=== PATIENT | female | born 1945 | race Caucasian/White ===

== ENCOUNTER 2021-01-01 09:21 | Emergency (ER) | payer MEDICARE, OTHER, SELFPAY ==
[2021-01-01] VITALS (43 sets, daily range): BP systolic 102–158; BP diastolic 52–76; PULSE 53–64; RESP 12–29; O2SAT 96–100
--- NOTE | 2021-01-01 09:34 | DI.RAD.S_ITS ---
PROCEDURE: XR CHEST 1V INDICATIONS: fall TECHNIQUE: One view of the chest was acquired. COMPARISON: None. FINDINGS: Surgical changes and devices: None. Lungs and pleura: Lungs are clear. No pleural effusions or pneumothorax. Mediastinum: Mediastinal contours appear normal. Heart size is normal. Bones and chest wall: No displaced rib fracture is identified. No suspicious bony lesions. Overlying soft tissues appear unremarkable. Degenerative changes are seen in the included lumbar spine. IMPRESSION: No acute cardiopulmonary abnormality. Dictated by: Alvin Olivo M.D. on 01/01/2021 at 10:04 Approved by: Alvin Olivo M.D. on 01/01/2021 at 10:05
--- NOTE | 2021-01-01 09:34 | DI.CT.S_ITS ---
PROCEDURE: CT CERVICAL SPINE WO CON INDICATIONS: fall, right hip pain TECHNIQUE: Noncontrast 3 mm thick sections acquired from the skull base to the T4 level. Sagittal and coronal reformats were then constructed. For radiation dose reduction, the following was used: automated exposure control, adjustment of mA and/or kV according to patient size. COMPARISON: [facility], CR, XR CHEST 1V, 01/01/2021, 9:48. [facility], CR, XR HIP W PEL IF DONE RT 2V, 01/01/2021, 9:48. [facility], CT, CT HEAD/BRAIN WO CON, 01/01/2021, 9:40. FINDINGS: Image quality: Excellent. Bones: No fractures or dislocations. Visualized superior ribs are intact. There is moderate to severe disc space narrowing at C3-C4, with severe disc space narrowing at C4-C5, C5-C6, and C6-C7. There is mild anterolisthesis at C3-C4, with minimal retrolisthesis at C4-C5 and C5-C6. Minimal anterolisthesis is seen at C6-C7. Focal degenerative change is also seen at T2-T3 and at T4-T5. At C4-C5, C5-C6, and C6-C7, there is moderate to severe right-sided and at least moderate left-sided neural foraminal narrowing seen. At C4-C5 and C5-C6, there is at least moderate central canal narrowing seen. Soft tissues: Prevertebral soft tissues are normal in thickness. No paravertebral hematomas. No apical pneumothoraces. IMPRESSION: No acute fractures are seen. Prominent cervical spine degenerative changes are seen. Dictated by: Livan Randolph M.D. on 01/01/2021 at 9:05 Approved by: Livan Randolph M.D. on 01/01/2021 at 9:08
--- NOTE | 2021-01-01 09:34 | DI.RAD.S_ITS ---
PROCEDURE: XR HIP W PEL IF DONE RT 2V INDICATIONS: right hip pain, fall TECHNIQUE: AP view of the pelvis and cross-table lateral view of the right hip. COMPARISON: None. FINDINGS: Bones: There is a comminuted displaced intertrochanteric fracture of the right proximal femur. The lesser trochanter component is displaced approximately 1.3 cm medially. There is also over riding of fracture fragments and mild varus angulation. Soft tissues: Overlying postoperative changes are noted. No suspicious soft tissue densities. IMPRESSION: Comminuted moderately displaced intertrochanteric fracture of the right proximal femur. Dictated by: Alvin Olivo M.D. on 01/01/2021 at 10:05 Approved by: Alvin Olivo M.D. on 01/01/2021 at 10:07
--- NOTE | 2021-01-01 09:34 | DI.CT.S_ITS ---
PROCEDURE: CT HEAD/BRAIN WO CON INDICATIONS: fall, right hip pain TECHNIQUE: Noncontrast 4.5 mm thick angled axial sections acquired from the foramen magnum to the vertex, with coronal and sagittal reformats. For radiation dose reduction, the following was used: automated exposure control, adjustment of mA and/or kV according to patient size. COMPARISON: None. FINDINGS: Cerebrum, Cerebellum and Brainstem: Moderate cerebral and cerebellar volume loss as well as minimal multifocal hypoattenuation in the deep and subcortical white matter present. No acute hemorrhage or mass effect. 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 Basal cisterns and foramen magnum are clear. Ventricles: Appropriate in size and position given the amount of cerebral atrophy. No evidence of hydrocephalus. Skull Base: The bony sella, pituitary gland and infundibulum are unremarkable. Clivus and craniovertebral relationships are appropriate. Visualized portions of external auditory canals and tympanic cavities are within normal limits. Calvarium and Scalp: No scalp soft tissue swelling. The underlying calvarium is intact without skull fracture or lytic lesion. Paranasal Sinuses: There is near complete opacification left frontal sinus related to mucosal thickening and debris. Mastoids: Unremarkable as visualized. No mastoid effusion present. Other: Atherosclerotic calcification in the cavernous portions of the distal internal carotid arteries are noted. IMPRESSION: 1. Atrophy, old cerebellar infarct, and chronic ischemic change without intracranial hemorrhage or mass effect. 2. Left maxillary mucosal sinus disease Approved by: Igor Deleon M.D. on 01/01/2021 at 9:10
--- NOTE | 2021-01-01 09:36 | ED.LOWEXIN ---
HPI - Extremity Injury (Lower) General Chief Complaint: Extremity Injury, Lower Stated Complaint: GLF,Right hip pain,short/rotation Time Seen by Provider: 01/01/21 09:33 Source: patient and EMS Mode of arrival: EMS Limitations: physical limitation History of Present Illness HPI Narrative: This is a 75-year-old female who comes emergency department with complaint of ground level fall. Patient states they are currently dog sitting 2 dogs for friends. 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 She denies hitting her head, she denies any neck or back pain. She denies any chest pain, no shortness of breath. No nausea or vomiting. She denies any loss of recent bowel or bladder incontinence. Patient denies any numbness or tingling in her lower extremities she is able to flex and point her right foot without issue. She has pain in the right hip region. She denies pain in her pelvis. Patient is not anticoagulated. She is immune suppressed and on Humira for rheumatoid arthritis. She does not have any history of hypertension, dyslipidemia or diabetes. 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 Patient is on medications for her memory including donepezil. She lives with her . She was transported from [facility] by EMS. Related Data Allergies Allergy/AdvReac Type Severity Reaction Status Date / Time hydroxychloroquine Allergy Verified 01/01/21 09:53 [From Plaquenil] Review of Systems Review of Systems ROS Unobtainable: All systems reviewed & are unremarkable except as noted in HPI and below Patient History Social History Smoking Status: Never smoker Smoking Status: Never smoker Substance Use Type: does not use Exam Narrative Exam Narrative: GEN: Patient appears in mild distress. HEAD: No evidence of trauma, no raccoon/Napier sign. NECK: Nontender, painless range of motion, trachea midline Negative Nexus criteria, there is no midline line tenderness, positive for distracting injury, no altered mental status, neuro deficit, recent EtOH. EYES: PE, pinpoint bilaterally, EOMI ENT: External inspection normal, trachea is midline, TM's are normal no hemotypanum, Nares are clear, no septal hematoma, no dental or oral injury, airway is normal and with normal occlusion, No bony tenderness RESP: Chest is nontender and has symmetric movement, no ecchymosis, breath sounds are normal no crackles, wheezes or rales CVS: Heart sounds are normal, no murmur noted, No JVD. ABG/GI: Nontender, soft, normal bowel sounds, no distention, no organomegaly, pelvic rock is negative NEURO: Oriented AOx3, neuro is grossly intact, sensation and motor is normal all 4 extremities moving, cranial nerves II through XII are intact, GCS is 15, patient has occasional trouble with remote history questions. PSYCH: Normal mood and affect SKIN: Intact, warm and dry, no crepitus and without decubitus BACK: No CVA tenderness, no vertebral tenderness, no step-off's, no crepitus EXT: Atraumatic, left hip is nontender, right hip is tender. Patient has a right lower extremity is shortened and externally rotated, no pedal edema, normal color and temperature, normal range of motion of extremities with normal tendon exam, 2+ pulses in all four extremities. Patient has sensation equal in bilateral lower extremities. 2+ pulses bilaterally. Patient has normal dorsiflexion plantar flexion of her right foot. Initial Vital Signs Initial Vital Signs: Vital Signs Pulse Rate 60 01/01/21 09:32 Respiratory Rate 22 01/01/21 09:32 Blood Pressure 158/72 H 01/01/21 09:32 Pulse Oximetry 98 01/01/21 09:32 Scores GCS [place] coma scale eye opening: Spontaneous [place] coma scale verbal response: Orientated [place] coma scale motor response: Obey commands [place] coma scale total score: 15 Course Orders Ordered: Discontinued Medications Sodium Chloride (Normal Saline 0.9%) 1,000 mls @ 150 mls/hr IV CONT SAMANTHA Last Infusion: 01/01/21 16:45 Dose: 0 mls/hr Documented by: JOSÉ MIGUELONETrae Admin: 01/01/21 10:02 Dose: 150 mls/hr Documented by: PATY Amiodarone HCl/Dextrose (Nexterone) 150 mg in 100 mls @ 600 mls/hr IV NOW ONE; Protocol Stop: 01/01/21 09:45 Last Infusion: 01/01/21 10:45 Dose: 0 mls/hr Documented by: BTONETrae Admin: 01/01/21 10:03 Dose: 600 mls/hr Documented by: PATY Amiodarone HCl/Dextrose (Nexterone) 360 mg in 200 mls @ 33.333 mls/hr IV NOW ONE; Protocol Stop: 01/01/21 16:05 Last Titration: 01/01/21 20:20 Dose: 0 mls/hr, 0 mls/hr Documented by: Admin: 01/01/21 11:13 Dose: 33.333 mls/hr, 33.33 mls/hr Documented by: PATY Magnesium Sulfate (Magnesium Sulfate) 2 gm in 50 mls @ 150 mls/hr IV NOW ONE Stop: 01/01/21 13:03 Last Infusion: 01/01/21 14:08 Dose: 0 mls/hr Documented by: PATY Cosigned by: MICHELLE Admin: 01/01/21 12:50 Dose: 150 mls/hr Documented by: PATY Cosigned by: MICHELLE Amiodarone HCl/Dextrose (Nexterone) 360 mg in 200 mls @ 16.7 mls/hr IV CONT SAMANTHA; Protocol Stop: 01/02/21 04:14 Last Titration: 01/01/21 20:23 Dose: 0 mls/hr, 0 mls/hr Documented by: Admin: 01/01/21 16:36 Dose: 16.7 mls/hr, 16.7 mls/hr Documented by: PATY Magnesium Sulfate (Magnesium Sulfate) 2 gm in 50 mls @ 150 mls/hr IV NOW ONE Stop: 01/01/21 17:45 Last Infusion: 01/01/21 18:44 Dose: 0 mls/hr Documented by: PATY Cosigned by: MICHELLE Admin: 01/01/21 17:36 Dose: 150 mls/hr Documented by: PATY Cosigned by: MICHELLE Morphine Sulfate (Morphine 4 Mg/Ml Inj) 4 mg IV NOW ONE Stop: 01/01/21 11:07 Last Admin: 01/01/21 11:13 Dose: 4 mg Documented by: PATY Morphine Sulfate (Morphine 4 Mg/Ml Inj) 4 mg IV NOW ONE Stop: 01/01/21 15:32 Last Admin: 01/01/21 16:35 Dose: 4 mg Documented by: BTONER Ondansetron HCl (Ondansetron 4 Mg/2 Ml Inj) 4 mg IV NOW ONE Stop: 01/01/21 11:24 Last Admin: 01/01/21 11:27 Dose: 4 mg Documented by: BTONER Consultations Consultation #1: Dr. Valles, cardiology with [facility]. Would recommend getting ECHO and starting amiodarone gtt. Patient would be appropriate for transfer to outside facility Consultation #2: Dr. Shepard with cardiology at [place], recommends to continue amiodarone gtt at this time. No additional changes currently Consultation #3: Dr. Zafar, hospitalist at [place] who accepts for transfer. Ortho has been consulted. Case discussed with cardiology. Discuss has had multiple runs of what appeared to be V-tach although patient has had some lightheadedness she has not had any other symptoms. She has not required any cardioversion. Lactate was 2.3 but had improved. Electrolytes are appropriate, renal functions appropriate. Troponin is negative x2 over [address], C-spine, chest x-ray and hip fracture on x-ray are noted. Patient is covid negative on PCR. Vital Signs Vital signs: Vital Signs - 8 hr 01/01/21 11:30 01/01/21 11:45 01/01/21 12:00 Pulse Rate 55 L 58 L 58 L Respiratory Rate 19 18 24 Blood Pressure 113/54 L 105/55 L 115/60 Pulse Oximetry 98 99 98 01/01/21 12:15 01/01/21 12:30 01/01/21 12:45 Pulse Rate 56 L 62 62 Respiratory Rate 22 24 Blood Pressure 111/76 115/71 102/52 L Pulse Oximetry 98 98 98 01/01/21 13:00 01/01/21 13:15 01/01/21 13:30 Pulse Rate 63 57 L 57 L Respiratory Rate 18 20 18 Blood Pressure 112/57 L 128/57 L 110/56 L Pulse Oximetry 99 97 98 01/01/21 13:45 01/01/21 14:00 01/01/21 14:15 Pulse Rate 62 61 58 L Respiratory Rate Blood Pressure 127/59 L 111/57 L 120/57 L Pulse Oximetry 99 99 97 01/01/21 14:30 01/01/21 14:45 01/01/21 15:00 Pulse Rate 63 56 L 57 L Respiratory Rate Blood Pressure 130/56 L 120/58 L 133/61 Pulse Oximetry 97 98 100 01/01/21 15:15 01/01/21 15:30 01/01/21 15:45 Pulse Rate 54 L 54 L 53 L Respiratory Rate Blood Pressure 110/58 L 113/54 L 117/59 L Pulse Oximetry 99 100 98 MDM - Extremity Injury (Lower) Lab Data Result diagrams: 01/01/21 14:30 01/01/21 10:44 Labs: Lab Results 01/01/21 01/01/21 01/01/21 Range/Units 10:17 10:17 10:29 WBC (4.5-11.0) X10^3/uL RBC (4.0-5.2) X10^6/uL Hgb (12.0-16.0) g/dL Hct (36-46) % MCV (80-100) fL MCH (26-34) PG MCHC (30-36) % RDW (11.6-14.8) % Plt Count (150-400) X10^3/uL Neut % (Auto) (50-75) % Lymph % (Auto) (25-40) % [place] % (Auto) (3-14) % Eos % (Auto) (2-4) % Baso % (Auto) (0-2) % Neut # (Auto) (9556-2329) /uL Lymph # (Auto) (2216-8293) /uL [place] # (Auto) (0-900) /uL Eos # (Auto) (0-450) /uL Baso # (Auto) (0-100) /uL PT (10.1-12.7) SECONDS INR (0.9-1.3) APTT (26.4-36.2) SECONDS Sodium (137-145) mmol/L Potassium (3.4-5.1) mmol/L Chloride (98-107) mmol/L Carbon Dioxide (22-32) mmol/L BUN (7-17) mg/dL Creatinine (0.52-1.04) mg/dL Estimated GFR (>60) mL/min BUN/Creatinine Ratio (6-22) Glucose (80-110) mg/dL Lactate (0.7-2.1) mmol/L Calcium (8.4-10.2) mg/dL Magnesium (1.6-2.3) mg/dL Total Creatine Kinase (30-135) U/L CK-MB (CK-2) (<2.37) ng/mL CK-MB (CK-2) Rel Index (1.5-5.0) % Troponin I (0.01-0.034) ng/mL NT-Pro-B Natriuret Pep (<450) pg/mL Urine Color Urine Appearance Urine pH (4.5-8.0) Ur Specific [place] (1.000-1.035) Urine Protein (Negative) Urine Glucose (UA) (Negative) g/dL Urine Ketones (NEGATIVE) Urine Occult Blood (Negative) Urine Nitrate (Negative) Urine Bilirubin (NEGATIVE) Urine Urobilinogen (0.2) E.U./dL Ur Leukocyte Esterase (NEGATIVE) Urine RBC (0-5/HPF) Urine WBC (0-5/HPF) Ur Squamous Epith Cells (0-5/HPF) Urine Bacteria (None) Ur Culture Indicated? U Opiates 300ng/mL cut Negative (Negative) Ur Oxycodone Screen Negative (Negative) Urine Methadone Screen Negative (Negative) Ur Barbiturates Screen Negative (Negative) U Tricyclic Antidepress Negative (Negative) Ur Phencyclidine Scrn Negative (Negative) Ur Amphetamines Screen Negative (Negative) U Methamphetamines Scrn Negative (Negative) Ur MDMA Scrn (Ecstasy) Negative (Negative) U Benzodiazepines Scrn Negative (Negative) Urine Cocaine Screen Negative (Negative) U Marijuana (THC) Screen Negative (Negative) Ethyl Alcohol ( - 10) mg/dL SARS-CoV-2 (PCR) Negative Negative (Negative) Blood Type Antibody Screen 01/01/21 01/01/21 01/01/21 Range/Units 10:29 10:44 10:44 WBC 5.9 (4.5-11.0) X10^3/uL RBC 3.55 L (4.0-5.2) X10^6/uL Hgb 12.2 (12.0-16.0) g/dL Hct 36.3 (36-46) % MCV 102.1 H (80-100) fL MCH 34.3 H (26-34) PG MCHC 33.6 (30-36) % RDW 13.6 (11.6-14.8) % Plt Count 151 (150-400) X10^3/uL Neut % (Auto) 83.8 H (50-75) % Lymph % (Auto) 7.3 L (25-40) % [place] % (Auto) 6.9 (3-14) % Eos % (Auto) 0.9 L (2-4) % Baso % (Auto) 1.1 (0-2) % Neut # (Auto) 4900 (6929-0477) /uL Lymph # (Auto) 400 L (6772-6623) /uL [place] # (Auto) 400 (0-900) /uL Eos # (Auto) 100 (0-450) /uL Baso # (Auto) 100 (0-100) /uL PT (10.1-12.7) SECONDS INR (0.9-1.3) APTT (26.4-36.2) SECONDS Sodium 137 (137-145) mmol/L Potassium 4.0 (3.4-5.1) mmol/L Chloride 103 (98-107) mmol/L Carbon Dioxide 27 (22-32) mmol/L BUN 17 (7-17) mg/dL Creatinine 0.93 (0.52-1.04) mg/dL Estimated GFR 58.5 L (>60) mL/min BUN/Creatinine Ratio 18.3 (6-22) Glucose 126 H (80-110) mg/dL Lactate (0.7-2.1) mmol/L Calcium 9.1 (8.4-10.2) mg/dL Magnesium (1.6-2.3) mg/dL Total Creatine Kinase 108 (30-135) U/L CK-MB (CK-2) 0.83 (<2.37) ng/mL CK-MB (CK-2) Rel Index 0.8 L (1.5-5.0) % Troponin I < 0.012 (0.01-0.034) ng/mL NT-Pro-B Natriuret Pep 418 (<450) pg/mL Urine Color Yellow Urine Appearance Clear Urine pH 8.5 H (4.5-8.0) Ur Specific [place] 1.010 (1.000-1.035) Urine Protein Trace H (Negative) Urine Glucose (UA) Negative (Negative) g/dL Urine Ketones Negative (NEGATIVE) Urine Occult Blood Negative (Negative) Urine Nitrate Negative (Negative) Urine Bilirubin Negative (NEGATIVE) Urine Urobilinogen 0.2 (0.2) E.U./dL Ur Leukocyte Esterase Negative (NEGATIVE) Urine RBC 1-5/hpf (0-5/HPF) Urine WBC 1-5/hpf (0-5/HPF) Ur Squamous Epith Cells 0-1 /hpf (0-5/HPF) Urine Bacteria None seen (None) Ur Culture Indicated? Cult not indicated U Opiates 300ng/mL cut (Negative) Ur Oxycodone Screen (Negative) Urine Methadone Screen (Negative) Ur Barbiturates Screen (Negative) U Tricyclic Antidepress (Negative) Ur Phencyclidine Scrn (Negative) Ur Amphetamines Screen (Negative) U Methamphetamines Scrn (Negative) Ur MDMA Scrn (Ecstasy) (Negative) U Benzodiazepines Scrn (Negative) Urine Cocaine Screen (Negative) U Marijuana (THC) Screen (Negative) Ethyl Alcohol < 10 ( - 10) mg/dL SARS-CoV-2 (PCR) (Negative) Blood Type Antibody Screen 01/01/21 01/01/21 01/01/21 Range/Units 10:44 10:44 11:04 WBC (4.5-11.0) X10^3/uL RBC (4.0-5.2) X10^6/uL Hgb (12.0-16.0) g/dL Hct (36-46) % MCV (80-100) fL MCH (26-34) PG MCHC (30-36) % RDW (11.6-14.8) % Plt Count (150-400) X10^3/uL Neut % (Auto) (50-75) % Lymph % (Auto) (25-40) % [place] % (Auto) (3-14) % Eos % (Auto) (2-4) % Baso % (Auto) (0-2) % Neut # (Auto) (2807-1179) /uL Lymph # (Auto) (2025-7853) /uL [place] # (Auto) (0-900) /uL Eos # (Auto) (0-450) /uL Baso # (Auto) (0-100) /uL PT 11.7 (10.1-12.7) SECONDS INR 1.0 (0.9-1.3) APTT 28 (26.4-36.2) SECONDS Sodium (137-145) mmol/L Potassium (3.4-5.1) mmol/L Chloride (98-107) mmol/L Carbon Dioxide (22-32) mmol/L BUN (7-17) mg/dL Creatinine (0.52-1.04) mg/dL Estimated GFR (>60) mL/min BUN/Creatinine Ratio (6-22) Glucose (80-110) mg/dL Lactate 2.3 H (0.7-2.1) mmol/L Calcium (8.4-10.2) mg/dL Magnesium 2.0 (1.6-2.3) mg/dL Total Creatine Kinase (30-135) U/L CK-MB (CK-2) (<2.37) ng/mL CK-MB (CK-2) Rel Index (1.5-5.0) % Troponin I (0.01-0.034) ng/mL NT-Pro-B Natriuret Pep (<450) pg/mL Urine Color Urine Appearance Urine pH (4.5-8.0) Ur Specific [place] (1.000-1.035) Urine Protein (Negative) Urine Glucose (UA) (Negative) g/dL Urine Ketones (NEGATIVE) Urine Occult Blood (Negative) Urine Nitrate (Negative) Urine Bilirubin (NEGATIVE) Urine Urobilinogen (0.2) E.U./dL Ur Leukocyte Esterase (NEGATIVE) Urine RBC (0-5/HPF) Urine WBC (0-5/HPF) Ur Squamous Epith Cells (0-5/HPF) Urine Bacteria (None) Ur Culture Indicated? U Opiates 300ng/mL cut (Negative) Ur Oxycodone Screen (Negative) Urine Methadone Screen (Negative) Ur Barbiturates Screen (Negative) U Tricyclic Antidepress (Negative) Ur Phencyclidine Scrn (Negative) Ur Amphetamines Screen (Negative) U Methamphetamines Scrn (Negative) Ur MDMA Scrn (Ecstasy) (Negative) U Benzodiazepines Scrn (Negative) Urine Cocaine Screen (Negative) U Marijuana (THC) Screen (Negative) Ethyl Alcohol ( - 10) mg/dL SARS-CoV-2 (PCR) (Negative) Blood Type Antibody Screen 01/01/21 01/01/21 01/01/21 Range/Units 14:20 14:30 14:30 WBC (4.5-11.0) X10^3/uL RBC (4.0-5.2) X10^6/uL Hgb 11.0 L (12.0-16.0) g/dL Hct 32.6 L (36-46) % MCV (80-100) fL MCH (26-34) PG MCHC (30-36) % RDW (11.6-14.8) % Plt Count (150-400) X10^3/uL Neut % (Auto) (50-75) % Lymph % (Auto) (25-40) % [place] % (Auto) (3-14) % Eos % (Auto) (2-4) % Baso % (Auto) (0-2) % Neut # (Auto) (7553-7828) /uL Lymph # (Auto) (6679-3295) /uL [place] # (Auto) (0-900) /uL Eos # (Auto) (0-450) /uL Baso # (Auto) (0-100) /uL PT (10.1-12.7) SECONDS INR (0.9-1.3) APTT (26.4-36.2) SECONDS Sodium (137-145) mmol/L Potassium (3.4-5.1) mmol/L Chloride (98-107) mmol/L Carbon Dioxide (22-32) mmol/L BUN (7-17) mg/dL Creatinine (0.52-1.04) mg/dL Estimated GFR (>60) mL/min BUN/Creatinine Ratio (6-22) Glucose (80-110) mg/dL Lactate 0.8 (0.7-2.1) mmol/L Calcium (8.4-10.2) mg/dL Magnesium (1.6-2.3) mg/dL Total Creatine Kinase (30-135) U/L CK-MB (CK-2) (<2.37) ng/mL CK-MB (CK-2) Rel Index (1.5-5.0) % Troponin I < 0.012 (0.01-0.034) ng/mL NT-Pro-B Natriuret Pep (<450) pg/mL Urine Color Urine Appearance Urine pH (4.5-8.0) Ur Specific [place] (1.000-1.035) Urine Protein (Negative) Urine Glucose (UA) (Negative) g/dL Urine Ketones (NEGATIVE) Urine Occult Blood (Negative) Urine Nitrate (Negative) Urine Bilirubin (NEGATIVE) Urine Urobilinogen (0.2) E.U./dL Ur Leukocyte Esterase (NEGATIVE) Urine RBC (0-5/HPF) Urine WBC (0-5/HPF) Ur Squamous Epith Cells (0-5/HPF) Urine Bacteria (None) Ur Culture Indicated? U Opiates 300ng/mL cut (Negative) Ur Oxycodone Screen (Negative) Urine Methadone Screen (Negative) Ur Barbiturates Screen (Negative) U Tricyclic Antidepress (Negative) Ur Phencyclidine Scrn (Negative) Ur Amphetamines Screen (Negative) U Methamphetamines Scrn (Negative) Ur MDMA Scrn (Ecstasy) (Negative) U Benzodiazepines Scrn (Negative) Urine Cocaine Screen (Negative) U Marijuana (THC) Screen (Negative) Ethyl Alcohol ( - 10) mg/dL SARS-CoV-2 (PCR) (Negative) Blood Type Antibody Screen 01/01/21 Range/Units 14:30 WBC (4.5-11.0) X10^3/uL RBC (4.0-5.2) X10^6/uL Hgb (12.0-16.0) g/dL Hct (36-46) % MCV (80-100) fL MCH (26-34) PG MCHC (30-36) % RDW (11.6-14.8) % Plt Count (150-400) X10^3/uL Neut % (Auto) (50-75) % Lymph % (Auto) (25-40) % [place] % (Auto) (3-14) % Eos % (Auto) (2-4) % Baso % (Auto) (0-2) % Neut # (Auto) (3318-9699) /uL Lymph # (Auto) (3661-6485) /uL [place] # (Auto) (0-900) /uL Eos # (Auto) (0-450) /uL Baso # (Auto) (0-100) /uL PT (10.1-12.7) SECONDS INR (0.9-1.3) APTT (26.4-36.2) SECONDS Sodium (137-145) mmol/L Potassium (3.4-5.1) mmol/L Chloride (98-107) mmol/L Carbon Dioxide (22-32) mmol/L BUN (7-17) mg/dL Creatinine (0.52-1.04) mg/dL Estimated GFR (>60) mL/min BUN/Creatinine Ratio (6-22) Glucose (80-110) mg/dL Lactate (0.7-2.1) mmol/L Calcium (8.4-10.2) mg/dL Magnesium (1.6-2.3) mg/dL Total Creatine Kinase (30-135) U/L CK-MB (CK-2) (<2.37) ng/mL CK-MB (CK-2) Rel Index (1.5-5.0) % Troponin I (0.01-0.034) ng/mL NT-Pro-B Natriuret Pep (<450) pg/mL Urine Color Urine Appearance Urine pH (4.5-8.0) Ur Specific [place] (1.000-1.035) Urine Protein (Negative) Urine Glucose (UA) (Negative) g/dL Urine Ketones (NEGATIVE) Urine Occult Blood (Negative) Urine Nitrate (Negative) Urine Bilirubin (NEGATIVE) Urine Urobilinogen (0.2) E.U./dL Ur Leukocyte Esterase (NEGATIVE) Urine RBC (0-5/HPF) Urine WBC (0-5/HPF) Ur Squamous Epith Cells (0-5/HPF) Urine Bacteria (None) Ur Culture Indicated? U Opiates 300ng/mL cut (Negative) Ur Oxycodone Screen (Negative) Urine Methadone Screen (Negative) Ur Barbiturates Screen (Negative) U Tricyclic Antidepress (Negative) Ur Phencyclidine Scrn (Negative) Ur Amphetamines Screen (Negative) U Methamphetamines Scrn (Negative) Ur MDMA Scrn (Ecstasy) (Negative) U Benzodiazepines Scrn (Negative) Urine Cocaine Screen (Negative) U Marijuana (THC) Screen (Negative) Ethyl Alcohol ( - 10) mg/dL SARS-CoV-2 (PCR) (Negative) Blood Type B Positive Antibody Screen Negative Imaging Data CT - cervical spine: Radiologist's Impression: [address] [id number] Scan ReportSigned Patient: Giselle Valencia [facility]#: [id number]: 4Acct:[id number]/Sex: 75 / FDate of Service: 01/01/21Loc: EDAccession Number: [id number] Procedure: CT cervical spine wo con Ordering Provider: Catherine Paniagua D.O. PROCEDURE: CT CERVICAL SPINE WO CON INDICATIONS: fall, right hip pain TECHNIQUE: Noncontrast 3 mm thick sections acquired from the skull base to the T4 level. Sagittal and coronal reformats were then constructed. For radiation dose reduction, the following was used: automated exposure control, adjustment of mA and/or kV according to patient size. COMPARISON: [facility], CR, XR CHEST 1V, 01/01/2021, 9:48. [facility], CR, XR HIP W PEL IF DONE RT 2V, 01/01/2021, 9:48. [facility], CT, CT HEAD/BRAIN WO CON, 01/01/2021, 9:40. FINDINGS: Image quality: Excellent. Bones: No fractures or dislocations. Visualized superior ribs are intact. There is moderate to severe disc space narrowing at C3-C4, with severe disc space narrowing at C4-C5, C5-C6, and C6-C7. There is mild anterolisthesis at C3-C4, with minimal retrolisthesis at C4-C5 and C5-C6. Minimal anterolisthesis is seen at C6-C7. Focal degenerative change is also seen at T2-T3 and at T4-T5. At C4-C5, C5-C6, and C6-C7, there is moderate to severe right-sided and at least moderate left-sided neural foraminal narrowing seen. At C4-C5 and C5-C6, there is at least moderate central canal narrowing seen. Soft tissues: Prevertebral soft tissues are normal in thickness. No paravertebral hematomas. No apical pneumothoraces. IMPRESSION: No acute fractures are seen. Prominent cervical spine degenerative changes are seen. Dictated by: Livan Randolph M.D. on 01/01/2021 at 9:05 Approved by: Livan Randolph M.D. on 01/01/2021 at 9:08 CT scan - head: Radiologist's Impression: [address] [id number] Scan ReportSigned Patient: Giselle Valencia [facility]#: [id number]: 1945cct:[id number]/Sex: 75 / FDate of Service: 01/01/21Loc: EDAccession Number: [id number] Procedure: CT head/brain wo con Ordering Provider: Catherine Paniagua D.O. PROCEDURE: CT HEAD/BRAIN WO CON INDICATIONS: fall, right hip pain TECHNIQUE: Noncontrast 4.5 mm thick angled axial sections acquired from the foramen magnum to the vertex, with coronal and sagittal reformats. For radiation dose reduction, the following was used: automated exposure control, adjustment of mA and/or kV according to patient size. COMPARISON: None. FINDINGS: Cerebrum, Cerebellum and Brainstem: Moderate cerebral and cerebellar volume loss as well as minimal multifocal hypoattenuation in the deep and subcortical white matter present. No acute hemorrhage or mass effect. 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 Basal cisterns and foramen magnum are clear. Ventricles: Appropriate in size and position given the amount of cerebral atrophy. No evidence of hydrocephalus. Skull Base: The bony sella, pituitary gland and infundibulum are unremarkable. Clivus and craniovertebral relationships are appropriate. Visualized portions of external auditory canals and tympanic cavities are within normal limits. Calvarium and Scalp: No scalp soft tissue swelling. The underlying calvarium is intact without skull fracture or lytic lesion. Paranasal Sinuses: There is near complete opacification left frontal sinus related to mucosal thickening and debris. Mastoids: Unremarkable as visualized. No mastoid effusion present. Other: Atherosclerotic calcification in the cavernous portions of the distal internal carotid arteries are noted. IMPRESSION: 1. Atrophy, old cerebellar infarct, and chronic ischemic change without intracranial hemorrhage or mass effect. 2. Left maxillary mucosal sinus disease Approved by: Igor Deleon M.D. on 01/01/2021 at 9:10 Chest x-ray: Radiologist's Impression: [address] [id number] ReportSigned Patient: Giselle Valencia [facility]#: [id number]: 4Acct:[id number]/Sex: 75 / FDate of Service: 01/01/21Loc: EDAccession Number: [id number] Procedure: XR chest 1V Ordering Provider: Mank,Catherine C D.O. PROCEDURE: XR CHEST 1V INDICATIONS: fall TECHNIQUE: One view of the chest was acquired. COMPARISON: None. FINDINGS: Surgical changes and devices: None. Lungs and pleura: Lungs are clear. No pleural effusions or pneumothorax. Mediastinum: Mediastinal contours appear normal. Heart size is normal. Bones and chest wall: No displaced rib fracture is identified. No suspicious bony lesions. Overlying soft tissues appear unremarkable. Degenerative changes are seen in the included lumbar spine. IMPRESSION: No acute cardiopulmonary abnormality. Dictated by: Alvin Olivo M.D. on 01/01/2021 at 10:04 Approved by: Alvin Olivo M.D. on 01/01/2021 at 10:05 Extremity x-ray #1: Radiologist's Impression: Giselle Valencia 75 F [address] [id number] ReportSigned Patient: Giselle Valencia AMR#: [id number]: [id number]/Sex: 75 / FDate of Service: 01/01/21Loc: EDAccession Number: [id number] Procedure: XR hip w pel if done RT 2V Ordering Provider: Catherine Paniagua D.O. PROCEDURE: XR HIP W PEL IF DONE RT 2V INDICATIONS: right hip pain, fall TECHNIQUE: AP view of the pelvis and cross-table lateral view of the right hip. COMPARISON: None. FINDINGS: Bones: There is a comminuted displaced intertrochanteric fracture of the right proximal femur. The lesser trochanter component is displaced approximately 1.3 cm medially. There is also over riding of fracture fragments and mild varus angulation. Soft tissues: Overlying postoperative changes are noted. No suspicious soft tissue densities. IMPRESSION: Comminuted moderately displaced intertrochanteric fracture of the right proximal femur. Dictated by: Alvin Olivo M.D. on 01/01/2021 at 10:05 Approved by: Alvin Olivo M.D. on 01/01/2021 at 10:07 ECG Data Attestation: I personally reviewed and interpreted this ECG as follows: Prior ECG tracings: not available for review Interpretation: Sinus bradycardia with left axis deviation and left bundle branch block. Rate of 59 DC 180, QRS of 132 QTC of 607. Patient had a 10 beat run was captured on EKG that appears to be monomorphic wide complex tachycardia. Patient had several episodes here in the department. [facility] Narrative Medical decision making narrative: 75 year old female with complaint of ground level fall that was witnessed after being knocked down by dogs according to family. Patient has a right hip fracture but was noted to have what appears to be possibly episodes of V-tach intermittently by EMS as well as ourselves here. Patient was started on amiodarone she was given magnesium which in may have been helpful. She has had intermittent episodes sometimes going 30-45 minutes without any changes and then having several episode within several minutes. Patient case was discussed with Cardiology at [facility], agreed with plan for amiodarone, attempt to get echo which was limited but shows no change in EF. Attempted to find facility with Cardiology as we cannot clear her medically prior to her orthopedic surgery. Spoke with multiple facilities including telling him, [place], [place], [facility], [facility] as well as [facility] [place] [facility] hot[facility]. Patient was ultimately accepted at [place] by Dr. Zafar after discussion with cardiology first. Critical Care Time Critical Care Time Critical Care Time: Yes Total Critical Care Time: 125 Attestation: The high probability of a clinically significant, sudden or life threatening deterioration of the [cardiac, pulmonary ] system(s) required my full and direct attention, intervention and personal management. The aggregate critical care time was [125] minutes. This time is in addition to time spent performing reported procedures but includes the following: [x] Data Review and interpretation [x] Patient assessment and monitoring of vital signs [x] Documentation [x] Medication orders and management Discharge Plan Departure Patient Disposition: [facility] Clinical Impression: Fall, Closed fracture of right hip, Wide-complex tachycardia
[2021-01-01] MEDS: SODIUM CHLORIDE 0.9% 1,000 ML 150 ML IV (10:02)
[2021-01-01] MEDS: AMIODARONE 150 MG/100 ML PIGGYBACK 600 MG IV (10:03)
[2021-01-01 10:42] LABS: Bacteria Urine None Seen
[2021-01-01 10:45] LABS: Appearance Urine UA CLEAR; Bilirubin Urine UA NEGATIVE (NEGATIVE); Color Urine UA YELLOW; Glucose Urine UA NEGATIVE (Negative); Ketones Urine UA NEGATIVE (NEGATIVE); Leukocyte Esterase Urine UA NEGATIVE (NEGATIVE); Nitrite Urine UA NEGATIVE (Negative); Occult Blood Urine UA NEGATIVE (Negative); Protein Urine UA TRACE (Negative); Urobilinogen Urine UA 0.2 E.U./dL (0.2)
[2021-01-01 10:47] LABS: Add Manual Diff / Slide Review NO; Basophils Absolute Auto 100 /uL (0-100); Basophils Percent Auto 1.1 % (0-2); Eosinophils Absolute Auto 100 /uL (0-450); Eosinophils Percent Auto 0.9 % (2-4); Hematocrit 36.3 % (36-46); Hemoglobin 12.2 g/dL (12.0-16.0); Lymphocytes Absolute Auto 400 /uL (1100-4500); Lymphocytes Percent Auto 7.3 % (25-40); Mean Corpuscular HGB Conc 33.6 % (30-36); Mean Corpuscular Hemoglobin 34.3 PG (26-34); Mean Corpuscular Volume 102.1 fL (80-100); Monocytes Absolute Auto 400 /uL (0-900); Monocytes Percent Auto 6.9 % (3-14); Neutrophils Absolute Auto 4900 /uL (1500-7000); Neutrophils Percent Auto 83.8 % (50-75); Platelet Count 151 X10^3/uL (150-400); Red Blood Cell Count 3.55 X10^6/uL (4.0-5.2); Red Cell Distribution Width 13.6 % (11.6-14.8); White Blood Cell Count 5.9 X10^3/uL (4.5-11.0)
[2021-01-01 10:47] LABS: COVID19 -Nasal RAPID Negative (Negative)
[2021-01-01 10:49] LABS: UR Morphine/Opiate cutoff 300 Negative (Negative); Ur Creatinine Normal (Normal); Ur Specific Gravity Normal (Normal); Urine Amphetamines Negative (Negative); Urine Barbiturates Negative (Negative); Urine Benzodiazepines Negative (Negative); Urine Cocaine Negative (Negative); Urine MDMA Negative (Negative); Urine Methadone Negative (Negative); Urine Methamphetamines Negative (Negative); Urine Oxycodone Negative (Negative); Urine Phencyclidine Negative (Negative); Urine Tetrahydrocannabinol Negative (Negative); Urine Tricyclic Antidepressant Negative (Negative); Urine pH Normal (Normal)
[2021-01-01 10:50] LABS: pH Urine UA 8.5 (4.5-8.0)
[2021-01-01 10:54] LABS: Culture Indicated Urine Cult Not Indicated; RBC Urine 1-5/HPF (0-5/HPF); Squamous Epithelial Cell Urine 0-1 /HPF (0-5/HPF); WBC Urine 1-5/HPF (0-5/HPF)
[2021-01-01 10:57] LABS: BUN Creatinine Ratio 18.3 (6-22); Blood Urea Nitrogen 17 mg/dL (7-17); Calcium 9.1 mg/dL (8.4-10.2); Carbon Dioxide 27 mmol/L (22-32); Chloride 103 mmol/L (98-107); Creatine Kinase 108 U/L (30-135); Estimated Glomerular Filt Rate 58.5 mL/min (>60); Ethanol (ETOH) < 10 mg/dL; Glucose 126 mg/dL (80-110); HEMOLYSIS 35 (0-50); Lactate (Lactic Acid) 2.3 mmol/L (0.7-2.1); Sodium 137 mmol/L (137-145)
[2021-01-01 11:09] LABS: NT-proBNP (BNP-Adult 18+) 418 pg/mL (<450); Troponin I < 0.012 ng/mL (0.01-0.034)
[2021-01-01 11:10] LABS: COVID19 - ADMIT (NP swab/PCR) Negative (Negative)
[2021-01-01 11:11] LABS: CKMB % Relative Index 0.8 % (1.5-5.0); Creatine Kinase MB 0.83 ng/mL (<2.37)
[2021-01-01] MEDS: AMIODARONE 360 MG/200 ML PIGGYBACK 33.33 MG IV (11:13)
[2021-01-01] MEDS: MORPHINE 4 MG/ML INJ IV ×2 (11:13→16:35)
[2021-01-01 11:14] LABS: Prothrombin Time 11.7 SECONDS (10.1-12.7)
[2021-01-01 11:16] LABS: PTT Partial Thromboplastin Tim 28 SECONDS (26.4-36.2)
[2021-01-01] MEDS: ONDANSETRON 4 MG/2 ML INJ IV (11:27)
[2021-01-01 12:44] LABS: Reflexed Lactate in 2 Hours Y
[2021-01-01] MEDS: MAGNESIUM SULFATE 2 GM/50 ML PIGGYBACK IV ×2 (12:50→17:36)
--- NOTE | 2021-01-01 13:05 | PC.NURSE ---
Addendum entered by Tamara Hernández R.N. 01/01/21 13:21: pt symptoms were dizzy, feeling like her eyes are going around in circles Original Note: pt had 3 small runs of Vtach while with EMS, pt was started on Amiodarone shortly after arrival for similar run of VTach on arrival. pt tolerated well. about 30 minutes ago pt had a longer run of vtach, appearing more like torsades, garner copy on chart, pt was now symptomatic ( and was not earlier). Dr robles aware of change. pt started on mag gtt. pt had another run of vtach, hard copy on chart.
[2021-01-01 14:32] LABS: Lactate (Lactic Acid) 0.8 mmol/L (0.7-2.1)
[2021-01-01 14:37] LABS: Hematocrit 32.6 % (36-46)
--- NOTE | 2021-01-01 14:39 | PC.NURSE ---
pt wiggles toes and can feel her feet.
--- NOTE | 2021-01-01 14:45 | DI.ECHO.S_ITS ---
[facility] + + Hospital +---------+ : : [address] : : : [address] : : : : [place], : : : : [place] [id number] : : : : Phone: [phone] + [id number] Echocardiogram Report + + :Name: CARLA ASHBY Study Date: 01/01/2021 Height: 60 in : :[facility] ReadingLocation: Weight: 100 lb : : Gender: Female BSA: 1.4 m2 : :: 1945 Age: 75 yrs BP: 120/58 mmHg: :Reason For Study: VTACH : : Performed By: Julio C Salgado : :Referring: SRIRAM LE : + + Interpretation Summary Normal left ventricle size with ejection fraction 55-60%. Septal motion is consistent with conduction abnormality. Moderately dilated left atrium. No significant valvular abnormality. The coronary sinus is enlarged measuring approximately 2.4 cm in diameter. Procedure: A limited echocardiogram was performed to assess left ventricular function in the setting of VTACH. The study quality was technically adequate. There is no prior echocardiogram noted for this patient. The patient was in normal sinus rhythm during the exam. The patient had frequent PVCs during the exam. Left Ventricle: The left ventricle is normal in size and wall thickness. The ejection fraction is estimated to be 55-60%. Septal motion is consistent with conduction abnormality. There are no other obvious focal wall motion abnormalities. Diastolic parameters suggest a relaxation abnormality of the left ventricle, consistent with probable normal filling pressures. Right Ventricle: The right ventricle is normal in size and function. Atria: The left atrium is moderately dilated. The right atrium is normal in size. There is no Doppler evidence for an atrial septal defect. Mitral Valve: The mitral valve is normal. There is trace mitral regurgitation. Aortic Valve: The aortic valve is trileaflet. The aortic valve opens well. No aortic regurgitation is present. Tricuspid Valve: The tricuspid valve is normal. There is mild tricuspid regurgitation. The right ventricular systolic pressure is estimated to be at least 18 mmHg based on an estimated right atrial pressure of 3 mm Hg. Great Vessels: The ascending aorta is normal in size. The coronary sinus is enlarged measuring approximately 2.4 cm in diameter. The IVC is of normal diameter and collapses greater than 50% with a sniff. This suggests a low right atrial pressure of 3 mm Hg. MMode/2D Measurements & Calculations LVIDd: 4.5 cm asc Aorta Diam: 3.0 cm LVIDs: 3.1 cm IVSd: 1.0 cm LVPWd: 0.89 cm LV back. diameter/BSA (cm/m^2): 3.2 LV sys. diameter/BSA (cm/m^2): 2.2 FS: 30.9 % LA A2 area: 21.1 cm2 RA long axis: 4.9 cm LA A4 area: 22.9 cm2 RA area: 15.6 cm2 LA length (vol): 6.5 cm RA vol: 42.0 ml LA vol: 62.6 ml RA : 30.2 ml/m2 LA vol index: 45.0 ml/m2 TAPSE: 2.8 cm IVC diam: 1.4 cm Doppler Measurements & Calculations MV E max cameron: 47.9 cm/sec MV dec time: 0.23 sec MV A max cameron: 81.9 cm/sec MV E/A: 0.58 Med Peak E' Cameron: 3.3 cm/sec E/E' med: 14.5 Lat Peak E' Cameron: 3.7 cm/sec E/E' lat: 13.0 E/e' average: 13.7 TR max cameron: 192.2 cm/sec TR max P.8 mmHg Electronically signed by: Titus Paris on Reading Physician:01/01/2021 04:40 PM
[2021-01-01 15:00] LABS: Troponin I < 0.012 ng/mL (0.01-0.034)
[2021-01-01] MEDS: AMIODARONE 360 MG/200 ML PIGGYBACK 16.7 MG IV (16:36)
--- NOTE | 2021-01-01 19:22 | PC.NURSE ---
pt was resting quietly when the monitor alarmed, with VTach, woke pt, rhythm corrected. reported to dr. robles. 2 events happened closely together, order rec'd for Mag 2 G iv. at 1730.
--- NOTE | 2021-01-01 20:24 | PC.NURSE ---
pt leaving with amiodarone infusing.
== END 2021-01-01 20:24 | disposition short-term general hospital (02) ==
PROVIDERS: Emergency Provider Emergency Medicine
DX: S72.001A Fracture of unspecified part of neck of right femur, initial encounter for closed fracture (principal); R00.0 Tachycardia, unspecified; I51.9 Heart disease, unspecified; W19.XXXA Unspecified fall, initial encounter; Z20.822 Contact with and (suspected) exposure to COVID-19; Z86.73 Personal history of transient ischemic attack (TIA), and cerebral infarction without residual deficits
CPT/HCPCS: 36415; 70450; 71045; 72125; 73502; 80048; 80305; 80320; 81001; 82550; 82553; 83605; 83735; 83880; 84484; 85014; 85018; 85025; 85610; 85730; 86850; 86900; 86901; 87635; 93005; 93010; 93306; 93307; 96365; 96366; 96375; 96376; 99285; 99291; 99292; C9803; J0282; J2270; J2405; J3475